=== PATIENT | male | born 1945 | race Caucasian/White ===

== ENCOUNTER 2018-04-17 05:27 | Inpatient (IN) | payer MEDICARE, MEDICAID ==
[2018-04-15 14:57] LABS: ALANINE AMINOTRANSFERASE 40 U/L (12-78); ALBUMIN 3.9 g/dL (3.4-5.0); ANION GAP 9 mmol/L (5-15); CALCIUM 8.7 mg/dL (8.5-10.1); CHLORIDE 104 mmol/L (98-107); CREATININE 1.37 mg/dL (0.7-1.3)
[2018-04-15 14:59] LABS: ALKALINE PHOSPHATASE 81 U/L (45-117); BILIRUBIN,TOTAL 0.8 mg/dL (0.2-1.0); TOTAL PROTEIN 7.4 g/dL (6.4-8.2)
[~2018-04-17] VITALS: Ht 167.6 cm; Wt 77.1 kg
[~2018-04-17 05:27] MED LIST: LISI-167 PO; MIRT30TA4 PO; PANT40TA5 PO
[2018-04-17] MEDS ORDERED: ROPIvacaine/PF 0.5%, 30 ML ONE (06:09)
[2018-04-17] MEDS ORDERED: CLINDAMYCIN 150 MG/ML, 6ML ONE (06:09)
[2018-04-17] MEDS ORDERED: LACTATED RINGERS 1,000 ML IV SCH (06:11)
[2018-04-17] MEDS ORDERED: SUCCINYLCHOLINE 20 MG/ML, 10ML ONE (06:27)
[2018-04-17] MEDS ORDERED: FENTANYL PF 250 MCG/5ML ONE (06:27)
[2018-04-17] MEDS ORDERED: CEFAZOLIN 1,000 MG ONE ×2 (06:27)
[2018-04-17] MEDS ORDERED: PROPOFOL 10 MG/ML, 20ML ONE ×3 (06:27→07:41)
[2018-04-17] MEDS ORDERED: ONDANSETRON 2MG/ML, 2ML ONE (06:27)
[2018-04-17] MEDS ORDERED: MIDAZOLAM 1 MG/ML, 2ML ONE (06:27)
[2018-04-17] MEDS ORDERED: BUPIVACAINE/PF 0.5% ONE (06:28)
[2018-04-17] MEDS ORDERED: EPHEDRINE 50 MG/ML, 1ML ONE (06:33)
[2018-04-17] MEDS ORDERED: PHENYLEPHRINE 10 MG/ML ONE (07:09)
[2018-04-17] MEDS ORDERED: PROMETHAZINE 25 MG/ML, 1ML IV PRN (07:30)
[2018-04-17] MEDS ORDERED: ACETAMINOPHEN 325 MG TABLET PO PRN ×2 (07:30→09:00)
[2018-04-17] MEDS ORDERED: OXYcodone 5 MG/5 ML ORAL.SOL UDC PO PRN (07:30)
[2018-04-17] MEDS ORDERED: FENTANYL PF 100 MCG/2ML IV PRN (07:30)
[2018-04-17] MEDS ORDERED: DEXAMETHASONE 4 MG/ML, 1ML ONE (07:54)
[2018-04-17] MEDS ORDERED: BISACODYL 10 MG SUPP PR PRN (09:00)
[2018-04-17] MEDS: LISINOPRIL 10 MG TABLET PO SCH (09:00)
[2018-04-17] MEDS ORDERED: PROMETHAZINE 25 MG/ML, 1ML IM PRN (09:00)
[2018-04-17] MEDS: DOCUSATE 100 MG CAPSULE PO SCH ×2 (09:00→21:26)
[2018-04-17] MEDS ORDERED: MAGNESIUM HYDROXIDE 8%, 30ML UDC PO PRN (09:00)
[2018-04-17] MEDS ORDERED: ONDANSETRON 2MG/ML, 2ML IV PRN (09:00)
[2018-04-17] MEDS ORDERED: DIPHENHYDRAMINE 25 MG CAPSULE PO PRN (09:00)
[2018-04-17] MEDS: PANTOPROZOLE 40MG TABLET PO SCH ×2 (09:00→21:26)
[2018-04-17] MEDS: KETOROLAC 30 MG/1 ML IM SCH ×2 (09:00→17:25)
[2018-04-17] MEDS: HYDROcodone/APAP 5/325 TABLET PO SCH ×4 (09:00→21:26)
[2018-04-17] MEDS ORDERED: HYDROmorphone 2 MG/ML, 1ML IV PRN (09:00)
[2018-04-17] MEDS ORDERED: SENNA/DOCUSATE TABLET PO PRN (09:00)
[2018-04-17 13:14] VITALS: BP 106/70
[2018-04-17] MEDS ORDERED: CEFAZOLIN PMX 2GM/50ML 50 ML IVPB SCH (14:00)
[2018-04-17 18:38] VITALS: BP 134/88
[2018-04-17] MEDS: CEFAZOLIN 2,000 MG in SODIUM CHLORIDE 0.9% 50 ML IVPB SCH (18:44)
[2018-04-17] MEDS: D5%-0.45% NACL 1,000 ML IV SCH (20:00)
[2018-04-17] MEDS ORDERED: MIRTAZAPINE 30 MG TAB.RAPDIS PO SCH (21:00)
[2018-04-18 00:24] VITALS: BP 162/96
[2018-04-18] MEDS: KETOROLAC 30 MG/1 ML IM SCH (01:00)
[2018-04-18] MEDS: HYDROcodone/APAP 5/325 TABLET PO SCH ×5 (01:28→17:05)
[2018-04-18] MEDS: CEFAZOLIN 2,000 MG in SODIUM CHLORIDE 0.9% 50 ML IVPB SCH ×2 (01:28→10:42)
[2018-04-18 04:14] VITALS: BP 132/85
[2018-04-18] MEDS: D5%-0.45% NACL 1,000 ML IV SCH ×2 (05:43→16:00)
[2018-04-18 07:00] VITALS: BP 132/82
[2018-04-18] MEDS: DOCUSATE 100 MG CAPSULE PO SCH (09:21)
[2018-04-18] MEDS: LISINOPRIL 10 MG TABLET PO SCH (09:21)
[2018-04-18] MEDS: PANTOPROZOLE 40MG TABLET PO SCH (09:21)
[2018-04-18 15:45] VITALS: BP 98/65
== END 2018-04-18 18:46 | disposition home or self-care (01) | DRG 464 ==
LOC: ORIP 05:27 → 4NOR 10:04
PROVIDERS: ADMIT Orthopaedic Surgery; ATTEND Orthopaedic Surgery
PROC: 0PBB0ZZ Excision of Left Clavicle, Open Approach (ICD-10-PCS; 2018-04-17)
PROC: 0JBF0ZZ Excision of Left Upper Arm Subcutaneous Tissue and Fascia, Open Approach (ICD-10-PCS; 2018-04-17)
PROC: 0RRK00Z Replacement of Left Shoulder Joint with Reverse Ball and Socket Synthetic Substitute, Open Approach (ICD-10-PCS; principal; 2018-04-17 07:00)
DX: M19.012 Primary osteoarthritis, left shoulder (principal); N17.9 Acute kidney failure, unspecified; K21.9 Gastro-esophageal reflux disease without esophagitis; Z82.49 Family history of ischemic heart disease and other diseases of the circulatory system; Z88.5 Allergy status to narcotic agent; Z89.511 Acquired absence of right leg below knee; M25.812 Other specified joint disorders, left shoulder
CPT/HCPCS: 36415; 80053; 87081; 87147; 93005; C1713; C1776; G0378; J0690; J1100; J1885; J2250; J2405; J2550; J2704; J2795; J3010; J3490; C1769; J0330; J2370; J7120